=== PATIENT | female | born 1980 | race Two or more races ===

== ENCOUNTER 2018-07-01 20:36 | Emergency (ER) | payer MEDICAID ==
[~2018-07-01] VITALS: Ht 157.5 cm; Wt 111.1 kg
[~2018-07-01 20:36] MED LIST: ALBUPOW26; HYDR-1421
[2018-07-01 21:29] VITALS: BP 110/64
[2018-07-01] MEDS ORDERED: KETOROLAC TROMETH 60MG/2ML VIAL IM ONE (23:00)
[2018-07-01] MEDS ORDERED: methylPREDNISolone SOD SUCC 125 MG/2 ML VL IM ONE (23:00)
== END 2018-07-02 00:31 | disposition home or self-care (01) ==
LOC: ER 20:36
DX: S83.91XA Sprain of unspecified site of right knee, initial encounter (principal); M54.6 Pain in thoracic spine; J45.909 Unspecified asthma, uncomplicated; E11.9 Type 2 diabetes mellitus without complications; X58.XXXA Exposure to other specified factors, initial encounter; Y93.89 Activity, other specified; Y99.8 Other external cause status; Y92.89 Other specified places as the place of occurrence of the external cause
CPT/HCPCS: 71046; 73030; 73562; 96372; 99284; J1885; J2930

== ENCOUNTER 2022-05-12 01:48 | Emergency (ER) | payer MEDICAID | END 2022-05-12 02:29 | disposition left against medical advice (07) | LOC: ER 01:48 | DX: Z04.3 Encounter for examination and observation following other accident (principal); Z53.21 Procedure and treatment not carried out due to patient leaving prior to being seen by health care provider; W19.XXXA Unspecified fall, initial encounter; Y93.89 Activity, other specified; Y92.89 Other specified places as the place of occurrence of the external cause; Y99.8 Other external cause status ==